=== PATIENT | female | born 1970 | race Caucasian/White ===

== ENCOUNTER 2016-12-31 22:31 | Emergency (ER) | payer OTHER ==
[~2016-12-31] VITALS: Ht 170.2 cm; Wt 79.4 kg
[~2016-12-31 22:31] MED LIST: CLON2TAB PO; IBUP-1955 PO; METHADONE PO; PREMARIN PO
--- NOTE | 2016-12-31 22:48 | NUR ---
PT WALKED INTO ER REQUESTING MED REFILL FOR CLONAZEPAM... PT IS ALERT, ORIENTED X 4, NO RESP DISTRESS NOTED OR REPORTED UPON ASSESSMENT. MD AT BEDSIDE...
--- NOTE | 2016-12-31 23:38 | NUR ---
Patient discharged to home in stable conditon. Written and verbal after care instructions given. Patient verbalizes understanding of instructions. Pt walked out of ER unassisted with belongings at side...
[2016-12-31 23:39] VITALS: BP 136/97
== END 2016-12-31 23:40 | disposition home or self-care (01) ==
LOC: ER 22:31
DX: F31.9 Bipolar disorder, unspecified (principal); F13.239 Sedative, hypnotic or anxiolytic dependence with withdrawal, unspecified; F19.10 Other psychoactive substance abuse, uncomplicated; F17.200 Nicotine dependence, unspecified, uncomplicated; F41.9 Anxiety disorder, unspecified
CPT/HCPCS: 99284; A4663

== ENCOUNTER 2017-02-22 17:22 | Emergency (ER) | payer OTHER ==
[~2017-02-22] VITALS: Ht 170.2 cm; Wt 88.5 kg
[2017-02-22] MEDS ORDERED: DIVA500T7 PO (17:37)
[2017-02-22] MEDS ORDERED: TOPI100T11 PO (17:37)
[2017-02-22] MEDS ORDERED: HYDR-548 PO (17:37)
[2017-02-22] MEDS ORDERED: PROP10TA10 PO (17:37)
[2017-02-22] MEDS ORDERED: [UNRECOGNIZED DRUG - REMARK] (17:37)
--- NOTE | 2017-02-22 18:42 | NUR ---
DR GREGG AT THE BEDSIDE FOR EVAL AND EXAM.
[2017-02-22] MEDS ORDERED: LORAZEPAM 0.5 MG TABLET PO ONE (18:45)
[2017-02-22] MEDS ORDERED: LORAZEPAM 1 MG TABLET ONE (18:59)
--- NOTE | 2017-02-22 19:00 | NUR ---
CARE ENDORSED BY DAYSHIFT NURSE, PT IN BED RESTING, NO RESP DISTRESS NOTED OR REPORTED UPON ASSESSMENT...
[2017-02-22 19:11] LABS: BASOPHILS # (AUTO) 0.1 K/uL (0.0-8.0); BASOPHILS % (AUTO) 0.7 % (0.0-2.0); EOSINOPHILS # (AUTO) 0.1 K/uL (0.0-0.7); EOSINOPHILS % (AUTO) 1.5 % (0.0-7.0); HEMATOCRIT 34.3 % (37-47); HEMOGLOBIN 10.5 G/DL (12.0-16.0); LYMPHOCYTES # (AUTO) 3.7 K/UL (0.8-4.8); LYMPHOCYTES % (AUTO) 43.8 % (20.5-51.5); MEAN CORPUSCULAR HEMOGLOBIN 21.8 UUG (27.0-31.0); MEAN CORPUSCULAR HGB CONC 31 g/dL (32.0-37.0); MONOCYTES # (AUTO) 0.7 K/UL (0.1-1.30); MONOCYTES % (AUTO) 8.7 % (0.0-11.0); NEUTROPHILS # (AUTO) 3.8 K/UL (1.8-8.9); NEUTROPHILS % (AUTO) 45.3 % (38.5-71.5); PLATELET COUNT (AUTO) 355 K/UL (150-450); RED BLOOD CELL COUNT(AUTO) 4.82 MIL/UL (4.2-5.4); RED CELL DISTRIBUTION WIDTH 16.3 % (11.5-14.5); WHITE BLOOD COUNT (AUTO) 8.4 K/UL (4.0-11.2)
[2017-02-22 19:17] LABS: CALCIUM 9.3 mg/dL (8.5-10.1); CARBON DIOXIDE 26 mmol/L (21-32); CHLORIDE 103 mmol/L (98-107); CREATININE 1.1 mg/dL (0.6-1.3); GFR 53 mL/min (>60); GLUCOSE 80 mg/dL (74-106); POTASSIUM 3.8 mmol/L (3.5-5.1); SODIUM SERUM 138 mmol/L (136-145); UREA NITROGEN, BLOOD 25 mg/dL (7-18)
[2017-02-22 19:23] LABS: ALANINE AMINOTRANSFERASE 20 U/L (14-59); ALBUMIN 3.9 g/dL (3.4-5.0); ALKALINE PHOSPHATASE 107 U/L (50-136); ASPARTATE AMINOTRANSFERASE 20 U/L (15-37); BILIRUBIN,DIRECT < 0.1 mg/dL (0.0-0.2); BILIRUBIN,TOTAL 0.3 mg/dL (0.2-1.0); TOTAL PROTEIN, SERUM 8.2 g/dL (6.4-8.2)
[2017-02-22 19:24] LABS: ACETAMINOPHEN < 2.0 ug/mL (10-30)
[2017-02-22 19:25] LABS: ETHANOL < 3 MG/DL (0-0)
[2017-02-22 19:48] LABS: ANISOCYTOSIS 1+; HYPOCHROMASIA 1+
[2017-02-22 19:49] LABS: OVALOCYTES FEW
--- NOTE | 2017-02-22 19:56 | NUR ---
MEDICALLY CLEARED BY DR GREGG.CALLED JABIER GOMEZ FROM [employer] WHO WILL EVAL PATIENT
[2017-02-22 20:11] LABS: *BILIRUBIN,URIN NEGATIVE (NEGATIVE); *BLOOD, URINE NEGATIVE (NEGATIVE); *CLARITY,URINE CLEAR (CLEAR); *COLOR,URINE YELLOW (YELLOW); *KETONES,URINE NEGATIVE (NEGATIVE); *PROTEIN,URINE NEGATIVE (NEGATIVE); *UROBILINOGEN,URINE 0.2 E.U./dl (NORMAL); LEUKOCYTE ESTERASE ,URINE NEGATIVE (NEGATIVE); NITRITE, URINE NEGATIVE (NEGATIVE); PH,URINE 6.5 (5.0-8.0); UGLUCOSE NEGATIVE (NEGATIVE)
[2017-02-22 20:18] LABS: *AMPHETAMINE, URINE POSITIVE (NEGATIVE); *BARBITURATE, URINE NEGATIVE (NEGATIVE); *CANNABINOID, URINE NEGATIVE (NEGATIVE); *COCCAINE, URINE NEGATIVE (NEGATIVE); *OPIATE, URINE NEGATIVE (NEGATIVE); *PHENCYCLIDINE SCREEN,URINE NEGATIVE (NEGATIVE)
[2017-02-22 20:21] LABS: WBC,URINE 0-3 /HPF (0-3)
--- NOTE | 2017-02-22 21:30 | NUR ---
PT STEPPED OUT FOR CIGARETTE BREAK...
--- NOTE | 2017-02-22 21:50 | NUR ---
WENT OUTSIDE TO LOOK FOR PT, PT NO FOUND, CONTACT PTS NUMBER SHE STATED SHES NOT COMING BACK , STATES SHE GOT TIRED OF WAITING, STATES SHE WILL NOT BE COMING BACK, STATES SHE WILL BE GOING TO [facility] IN THE MORNING...
--- NOTE | 2017-02-22 21:57 | NUR ---
Patient eloped from facility. ER physician notified. Pt stated she was going to smoke, and never returned...
== END 2017-02-22 22:01 | disposition left against medical advice (07) ==
LOC: ER 17:24
DX: F31.9 Bipolar disorder, unspecified (principal); F17.210 Nicotine dependence, cigarettes, uncomplicated; F41.9 Anxiety disorder, unspecified; F17.200 Nicotine dependence, unspecified, uncomplicated; F19.10 Other psychoactive substance abuse, uncomplicated
CPT/HCPCS: 36415; 80307; 85025; A4663; G0480-TC; G6040-TC

== ENCOUNTER 2019-07-04 19:32 | Emergency (ER) | payer OTHER ==
[~2019-07-04] VITALS: Ht 172.7 cm; Wt 74.8 kg
[~2019-07-04 19:32] MED LIST changes: +DIVA-78 PO; +HYDR-4354 PO; +METH40TA2 PO; +PROP10TA10 PO; +TOPI100T PO; +[UNRECOGNIZED DRUG - REMARK]
--- NOTE | 2019-07-04 20:00 | NUR ---
PATIENT WAS MSE BY DR LIN IN ROOM 05B. PATIENT A & O X3.
--- NOTE | 2019-07-04 20:53 | NUR ---
Patient discharged to home in stable conditon. Written and verbal after care instructions given. Patient verbalizes understanding of instructions. Pt ambulated out of ER with steady gait, no acute signs of distress, VSS, all belongings taken.
[2019-07-04 20:55] VITALS: BP 110/72
== END 2019-07-04 20:55 | disposition home or self-care (01) ==
LOC: ER 19:34
DX: S90.111A Contusion of right great toe without damage to nail, initial encounter (principal); G89.29 Other chronic pain; M54.9 Dorsalgia, unspecified; F11.10 Opioid abuse, uncomplicated; Z79.1 Long term (current) use of non-steroidal anti-inflammatories (NSAID); Z79.899 Other long term (current) drug therapy; W22.8XXA Striking against or struck by other objects, initial encounter; Y93.89 Activity, other specified; Y92.89 Other specified places as the place of occurrence of the external cause; Y99.8 Other external cause status
CPT/HCPCS: 73660; A4663

== ENCOUNTER 2019-12-14 20:47 | Emergency (ER) | payer OTHER ==
[~2019-12-14] VITALS: Ht 170.2 cm; Wt 77.1 kg
--- NOTE | 2019-12-14 21:08 | NUR ---
Dr. Ram at bedside for MSE.
--- NOTE | 2019-12-14 21:13 | NUR ---
Patient discharged to home in stable conditon. Written and verbal after care instructions given. Patient verbalizes understanding of instructions. PT ambulated out of ER with steady gait, no acute signs of distress, VSS, all belongings taken.
[2019-12-14 21:14] VITALS: BP 152/92
== END 2019-12-14 21:14 | disposition home or self-care (01) ==
LOC: ER 20:48
DX: B35.4 Tinea corporis (principal); Z79.899 Other long term (current) drug therapy
CPT/HCPCS: A4663

== ENCOUNTER 2020-10-02 23:49 | Emergency (ER) | payer OTHER ==
[~2020-10-02] VITALS: Ht 170.2 cm; Wt 90.7 kg
[~2020-10-02 23:49] MED LIST changes: -HYDR-4354 PO; -IBUP-1955 PO; -METH40TA2 PO; -METHADONE PO; -PREMARIN PO; -PROP10TA10 PO; -TOPI100T PO; -[UNRECOGNIZED DRUG - REMARK]
[2020-10-03] MEDS ORDERED: OLAN15TA3 PO (00:05)
[2020-10-03] MEDS ORDERED: METH40TA PO (00:05)
[2020-10-03] MEDS ORDERED: PROP10TA10 PO (00:05)
--- NOTE | 2020-10-03 00:32 | NUR ---
MSE COMPLETED, PT D/C'D HOME aCI/RX X2 GIVEN, PT GOT DRESSED AND AMBULATED W/O DIFF/TOOK ALL BELONGINGS.
[2020-10-03 00:33] VITALS: BP 145/88
[2020-10-03 00:36] LABS: *BILIRUBIN,URIN NEGATIVE (NEGATIVE); *BLOOD, URINE NEGATIVE (NEGATIVE); *CLARITY,URINE CLEAR (CLEAR); *COLOR,URINE YELLOW (YELLOW); *KETONES,URINE NEGATIVE (NEGATIVE); *UROBILINOGEN,URINE 0.2 E.U./dl (NORMAL); LEUKOCYTE ESTERASE ,URINE NEGATIVE (NEGATIVE); NITRITE, URINE NEGATIVE (NEGATIVE); UGLUCOSE NEGATIVE (NEGATIVE)
[2020-10-03 00:38] LABS: *URINE HCG, QUAL NEGATIVE (NEGATIVE)
== END 2020-10-03 00:34 | disposition home or self-care (01) ==
LOC: ER 23:55
DX: N81.10 Cystocele, unspecified (principal); F39 Unspecified mood [affective] disorder; Z79.899 Other long term (current) drug therapy; Z88.8 Allergy status to other drugs, medicaments and biological substances
CPT/HCPCS: 84703; A4663

== ENCOUNTER 2022-07-02 07:25 | Emergency (ER) | payer OTHER ==
[~2022-07-02] VITALS: Ht 170.2 cm; Wt 81.6 kg
[~2022-07-02 07:25] MED LIST changes: +METH40TA PO; +OLAN15TA3 PO; +PROP10TA10 PO
--- NOTE | 2022-07-02 07:42 | NUR ---
at bedside for evaluation.
--- NOTE | 2022-07-02 08:30 | NUR ---
Ultrasound at the bedside.
[2022-07-02 08:43] LABS: CREATININE 0.8 mg/dL (0.6-1.3); POTASSIUM 3.5 mmol/L (3.5-5.1)
[2022-07-02 09:06] LABS: HEMATOCRIT 38.6 % (31.2-41.9); MEAN CORPUSCULAR HEMOGLOBIN 30.2 uug (24.7-32.8); PLATELET COUNT (AUTO) 268 K/uL (179-408)
[2022-07-02] MEDS ORDERED: CEPH500C2 PO (09:16)
[2022-07-02 09:23] VITALS: BP 131/87
--- NOTE | 2022-07-02 09:23 | NUR ---
Patient discharged to home in stable condition. Written and verbal after care instructions given. Patient verbalizes understanding of instructions. Stressed follow up or return to ER for worsening s/s.
== END 2022-07-02 09:24 | disposition home or self-care (01) ==
LOC: ER 07:36
DX: I80.02 Phlebitis and thrombophlebitis of superficial vessels of left lower extremity (principal); L03.116 Cellulitis of left lower limb; R23.4 Changes in skin texture; F11.11 Opioid abuse, in remission; F39 Unspecified mood [affective] disorder; Z79.899 Other long term (current) drug therapy
CPT/HCPCS: 36415; 85025; A4663

== ENCOUNTER 2022-08-02 03:29 | Emergency (ER) | payer SELFPAY ==
[~2022-08-02 03:29] MED LIST changes: +CEPH500C2 PO
--- NOTE | 2022-08-02 03:42 | NUR ---
Patient was called to be triaged but was not present in the waiting room or outside of ER.
--- NOTE | 2022-08-02 04:00 | NUR ---
Patient was called to be triaged but was not present in the waiting room.
--- NOTE | 2022-08-02 04:30 | NUR ---
Patient was called to be triaged but was not present in the waiting room or outside of ER. PATIENT WAS NOT SEEN BY ERMD OR TRIAGED.
== END 2022-08-02 04:30 | disposition left against medical advice (07) ==
LOC: ER 03:48
DX: Z53.21 Procedure and treatment not carried out due to patient leaving prior to being seen by health care provider (principal)

== ENCOUNTER 2022-10-28 06:25 | Emergency (ER) | payer OTHER ==
[~2022-10-28] VITALS: Ht 170.2 cm; Wt 81.6 kg
[2022-10-28] MEDS ORDERED: FLUORESCEIN SODIUM 1 MG STRIP OP ONE (06:45)
[2022-10-28] MEDS ORDERED: TETRACAINE HCL 0.5% OPHT DROP 2 ML BOTTLE OP ONE (06:45)
[2022-10-28] MEDS ORDERED: TETRACAINE HCL 0.5% OPHT DROP 2 ML BOTTLE ONE (06:49)
[2022-10-28] MEDS ORDERED: FLUORESCEIN SODIUM 1 MG STRIP ONE (06:49)
--- NOTE | 2022-10-28 06:50 | NUR ---
Dr. Marcus at bedside.
[2022-10-28] MEDS: TONOPEN 1 EA EA MC ONE ×2 (06:52→07:01)
[2022-10-28] MEDS ORDERED: ERYT30GE8 TP (07:04)
--- NOTE | 2022-10-28 07:19 | NUR ---
Patient discharged to home in stable condition. A/O x 4. NAD noted. Ambulatory with a steady gait. All belongings with patient. Written and verbal after care instructions given. Patient verbalizes understanding of instructions. Stressed follow up or return to ER for worsening s/s.
[2022-10-28 07:21] VITALS: BP 153/99
[2022-10-28] MEDS ORDERED: ERYT3.5O24 RIGHTEYE (09:30)
== END 2022-10-28 07:21 | disposition home or self-care (01) ==
LOC: ER 06:25
DX: S05.01XA Injury of conjunctiva and corneal abrasion without foreign body, right eye, initial encounter (principal); W22.8XXA Striking against or struck by other objects, initial encounter; Y93.89 Activity, other specified; Y92.89 Other specified places as the place of occurrence of the external cause; R03.0 Elevated blood-pressure reading, without diagnosis of hypertension
CPT/HCPCS: A4663

== ENCOUNTER 2023-11-05 07:33 | Emergency (ER) | payer OTHER ==
[~2023-11-05] VITALS: Ht 170.2 cm; Wt 72.6 kg
[~2023-11-05 07:33] MED LIST changes: +ERYT3.5O24 RIGHTEYE
[2023-11-05] MEDS ORDERED: CLON2TAB PO (08:09)
[2023-11-05] MEDS ORDERED: CLONAZEPAM 0.5 MG TABLET PO ONE (08:15)
[2023-11-05] MEDS ORDERED: CLONAZEPAM 0.5 MG TABLET ONE (08:22)
[2023-11-05 08:27] VITALS: BP 166/77; TEMP 98; O2SAT 98
== END 2023-11-05 08:29 | disposition home or self-care (01) ==
LOC: ER 07:33
DX: F41.9 Anxiety disorder, unspecified (principal); Z76.0 Encounter for issue of repeat prescription; F17.200 Nicotine dependence, unspecified, uncomplicated; Z79.899 Other long term (current) drug therapy; Z90.49 Acquired absence of other specified parts of digestive tract; Z88.1 Allergy status to other antibiotic agents
CPT/HCPCS: A4606; A4663

== ENCOUNTER 2024-06-16 09:31 | Emergency (ER) | payer OTHER ==
[~2024-06-16] VITALS: Ht 170.2 cm; Wt 63.5 kg
[2024-06-16 09:37] VITALS: O2SAT 97
== END 2024-06-16 10:39 | disposition home or self-care (01) ==
LOC: ER 09:31
DX: G56.02 Carpal tunnel syndrome, left upper limb (principal); F17.200 Nicotine dependence, unspecified, uncomplicated; Z98.890 Other specified postprocedural states; Z79.899 Other long term (current) drug therapy; Z88.1 Allergy status to other antibiotic agents
CPT/HCPCS: A4606; A4663

== ENCOUNTER 2025-03-07 09:37 | Emergency (ER) | payer OTHER ==
[~2025-03-07] VITALS: Ht 167.6 cm; Wt 63.5 kg
[2025-03-07] MEDS ORDERED: LIDOCAINE 2%-EPI 1:100,000 20 ML VIAL ONE (09:57)
[2025-03-07] MEDS: LIDOCAINE 2%-EPI 1:100,000 20 ML VIAL IJ ONE (10:59)
[2025-03-07] MEDS ORDERED: LIDO5CRE18 TP (11:03)
[2025-03-07] MEDS ORDERED: MUPI1OIN5 TP (11:03)
[2025-03-07 11:30] VITALS: BP 131/92; O2SAT 96
== END 2025-03-07 11:12 | disposition home or self-care (01) ==
LOC: ER 09:39
DX: S06.0X0A Concussion without loss of consciousness, initial encounter (principal); S01.01XA Laceration without foreign body of scalp, initial encounter; F17.200 Nicotine dependence, unspecified, uncomplicated; F41.9 Anxiety disorder, unspecified; Z79.899 Other long term (current) drug therapy; Z90.49 Acquired absence of other specified parts of digestive tract; W01.0XXA Fall on same level from slipping, tripping and stumbling without subsequent striking against object, initial encounter; Y93.89 Activity, other specified; Y92.098 Other place in other non-institutional residence as the place of occurrence of the external cause; Y99.8 Other external cause status
CPT/HCPCS: 70450; A4606; A4663

== ENCOUNTER 2025-05-19 01:30 | Emergency (ER) | payer OTHER ==
[~2025-05-19] VITALS: Ht 170.2 cm; Wt 63.5 kg
[~2025-05-19 01:30] MED LIST changes: +LIDO5CRE18 TP; +MUPI1OIN5 TP
[2025-05-19 01:38] VITALS: BP 156/101
[2025-05-19] MEDS ORDERED: HYDROCODONE/APAP 10-325 MG TABLET PO ONE (02:00)
[2025-05-19] MEDS: KETOROLAC TROMETHAMINE 30 MG INJ IM ONE (02:17)
[2025-05-19] MEDS: HYDROCODONE/APAP 5-325MG TABLET PO ONE (02:17)
[2025-05-19] MEDS ORDERED: HYDR-4209 PO (03:30)
[2025-05-19 03:45] VITALS: BP 149/98; TEMP 98; O2SAT 98
== END 2025-05-19 03:46 | disposition home or self-care (01) ==
LOC: ER 01:32
DX: S20.211A Contusion of right front wall of thorax, initial encounter (principal); R07.81 Pleurodynia; R03.0 Elevated blood-pressure reading, without diagnosis of hypertension; F17.200 Nicotine dependence, unspecified, uncomplicated; F41.9 Anxiety disorder, unspecified; G89.29 Other chronic pain; Z79.899 Other long term (current) drug therapy; Z90.49 Acquired absence of other specified parts of digestive tract; Z87.19 Personal history of other diseases of the digestive system; W22.03XA Walked into furniture, initial encounter; Y93.89 Activity, other specified; Y92.89 Other specified places as the place of occurrence of the external cause; Y99.8 Other external cause status
CPT/HCPCS: 99285; 71250; 96372; J1885; A4606; A4663

== ENCOUNTER 2025-08-11 01:30 | Emergency (ER) | payer OTHER ==
[~2025-08-11] VITALS: Ht 170.2 cm; Wt 68.0 kg
[~2025-08-11 01:30] MED LIST changes: +HYDR-4209 PO
[2025-08-11 01:33] VITALS: BP 157/94
[2025-08-11] MEDS ORDERED: CYCLOBENZAPRINE HCL 10 MG TABLET ONE (02:12)
[2025-08-11] MEDS: CYCLOBENZAPRINE HCL 10 MG TABLET PO ONE (02:13)
[2025-08-11] MEDS ORDERED: CYCL5TAB PO (02:18)
[2025-08-11] MEDS ORDERED: PRED20TA PO (02:18)
[2025-08-11 02:23] VITALS: BP 145/90; O2SAT 96
== END 2025-08-11 02:24 | disposition home or self-care (01) ==
LOC: ER 01:40
DX: M79.621 Pain in right upper arm (principal); R03.0 Elevated blood-pressure reading, without diagnosis of hypertension; F17.200 Nicotine dependence, unspecified, uncomplicated; Z79.52 Long term (current) use of systemic steroids; Z79.899 Other long term (current) drug therapy; Z90.49 Acquired absence of other specified parts of digestive tract
CPT/HCPCS: 99283; J7512; A4606; A4663

== ENCOUNTER 2025-08-16 17:41 | Emergency (ER) | payer OTHER ==
[~2025-08-16 17:41] MED LIST changes: +CYCL5TAB PO; +PRED20TA PO
[2025-08-17] MEDS ORDERED: HYDR-4209 PO (02:07)
[2025-08-17] MEDS ORDERED: NAPR500T6 PO (02:07)
== END 2025-08-16 18:49 | disposition left against medical advice (07) ==
LOC: ER 17:41
DX: M25.511 Pain in right shoulder (principal); Z53.21 Procedure and treatment not carried out due to patient leaving prior to being seen by health care provider

== ENCOUNTER 2025-08-17 01:07 | Emergency (ER) | payer OTHER ==
[~2025-08-17] VITALS: Ht 170.2 cm; Wt 68.0 kg
[2025-08-17 01:12] VITALS: BP 187/100
[2025-08-17] MEDS: KETOROLAC TROMETHAMINE 30 MG INJ IM ONE (01:34)
[2025-08-17] MEDS: HYDROCODONE/APAP 5-325MG TABLET PO ONE (01:35)
[2025-08-17] MEDS ORDERED: NAPR500T6 PO (02:07)
[2025-08-17] MEDS ORDERED: HYDR-4209 PO (02:07)
[2025-08-17 02:16] VITALS: BP 145/100; O2SAT 99
== END 2025-08-17 02:17 | disposition home or self-care (01) ==
LOC: ER 01:23
DX: M25.511 Pain in right shoulder (principal); M75.121 Complete rotator cuff tear or rupture of right shoulder, not specified as traumatic; R03.0 Elevated blood-pressure reading, without diagnosis of hypertension; F41.9 Anxiety disorder, unspecified; F17.200 Nicotine dependence, unspecified, uncomplicated; G89.29 Other chronic pain; Z79.52 Long term (current) use of systemic steroids; Z79.899 Other long term (current) drug therapy; Z90.49 Acquired absence of other specified parts of digestive tract
CPT/HCPCS: 99283; 73020; 96372; J1885; A4606; A4663